=== PATIENT | female | born 1945 | race Caucasian/White ===

== ENCOUNTER → 2022-05-10 09:42 | Outpatient (BNVA) | payer MEDICARE, SELFPAY | PROVIDERS: PCP Family Medicine; Referring Provider Family Medicine; Visit Provider Internal Medicine Rheumatology | DX: M15.9 Polyosteoarthritis, unspecified (principal); Z79.899 Other long term (current) drug therapy; Z11.59 Encounter for screening for other viral diseases; G56.03 Carpal tunnel syndrome, bilateral upper limbs; Z82.61 Family history of arthritis; Z71.85 Encounter for immunization safety counseling | CPT/HCPCS: 71046; 73130; 73562; 73630; 99204 ==

== ENCOUNTER → 2022-09-13 09:02 | Outpatient (BNVA) | payer MEDICARE, SELFPAY | PROVIDERS: PCP Family Medicine; Visit Provider Internal Medicine Rheumatology | DX: M06.041 Rheumatoid arthritis without rheumatoid factor, right hand (principal); M06.042 Rheumatoid arthritis without rheumatoid factor, left hand; Z79.899 Other long term (current) drug therapy; Z71.85 Encounter for immunization safety counseling; G56.03 Carpal tunnel syndrome, bilateral upper limbs; Z82.61 Family history of arthritis | CPT/HCPCS: 99214 ==